=== PATIENT | female | born 1940 | race Caucasian/White ===

== ENCOUNTER 2016-09-12 04:41 | Inpatient (IN) | payer MEDICARE, BC ==
[2016-09-02 20:34] LABS: BASOPHILS 0.3 %; BASOPHILS ABSOLUTE 0.02 10/3/uL (0.0-0.16); EOSINOPHILS ABSOLUTE 0.07 10/3/uL (0.0-0.53); HEMATOCRIT 37.1 % (36.0-48.0); HEMOGLOBIN 12.1 g/dL (12.0-16.0); IMMATURE GRANULOCYTES 0.1 %; IMMATURE GRANULOCYTES ABSOLUTE 0.01 10/3/uL (0.0-0.11); LYMPHOCYTES 19.7 %; LYMPHOCYTES ABSOLUTE 1.39 10/3/uL (0.67-4.30); MEAN CORPUS HGB CONC 32.6 g/dL (32.0-36.0); MEAN CORPUSCULAR HEMOGLOB 30.8 pg (26.0-34.0); MEAN PLATELET VOLUME 9.8 fL (9.2-13.0); MONOCYTES 9.5 %; MONOCYTES ABSOLUTE 0.67 10/3/uL (0.21-1.20); NEUTROPHILS 69.4 %; NEUTROPHILS ABSOLUTE 4.91 10/3/uL (2.02-8.40); PLATELET COUNT 221 10/3/uL (150-400); RED CELL COUNT 3.93 10/6/uL (4.0-5.6); WHITE BLOOD CELLS 7.1 10/3/uL (4.5-10.5)
[2016-09-02 20:37] LABS: MANUAL DIFF NO %; MEAN CORPUSCULAR VOLUME 94.4 fL (80-100)
[2016-09-02 20:39] LABS: CHLORIDE, SERUM 105 MMOL/L (96-112); CO2 (CARBON DIOXIDE) 29 MMOL/L (24-34); POTASSIUM, SERUM 4.9 MMOL/L (3.5-5.3); SODIUM, SERUM 142 MMOL/L (135-148)
[2016-09-02 20:40] LABS: BUN (BLOOD UREA NITROGEN) 27 MG/DL (6-23); CREATININE 1.57 MG/DL (0.55-1.02); GFR AFRICAN AMERICAN 36 ML/MIN (>=60); GFR NON AFRICAN AMERICAN 31 ML/MIN (>=60); GLUCOSE, SERUM 88 MG/DL (60-99)
[2016-09-02 20:41] LABS: INTERNATIONAL NORMAL RATI 1.1 UNITS (-); PROTIME (NOT ORD) 14.1 SEC (12.0-14.5)
[2016-09-02 20:57] LABS: ASCORBIC ACID (UR NOT ORDER) 40 (NEG); BILIRUBIN, URINE NEGATIVE (NEG); KETONE, URINE NEGATIVE (NEG); LEUKOCYTE ESTERASE(NOT OR LARGE (NEG); WBC (NOT ORDERED) (RFLEX) 36 (0-5)
--- NOTE | ~2016-09-12 | OP ---
Record Of Operation [place] [id number] [place]. [address] NAME: SAMIR BETANCOURT : 36 STATUS : ADM IN [facility]#: [id number] AGE: 75 ADM/REG DATE : 09/12/16 MR#: [id number] REPORT SERV DATE: 09/13/16 DICTATED BY: DALLIN SPENCE DATE: 09/12/16 REPORT STATUS : Draft TRANSCRIBED BY: MODL DATE: 09/12/16 DATE OF PROCEDURE: 09/12/2016 OPERATIVE SURGEON: Dallin Spence M.D. OPERATIVE PRODUCTION MECHANIC: Desmond PETERSON COMPLICATIONS: None. ESTIMATED BLOOD LOSS: Less than 75 mL. DISPOSITION: Stable to recovery room. ANESTHESIA: General with interscalene block augmentation for postoperative pain control. PREOPERATIVE DIAGNOSES: 1. Right shoulder pain. 2. Rotator cuff dysfunction/massive irreparable rotator cuff tear. 3. 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 4. Acromioclavicular joint osteoarthritis. POSTOPERATIVE DIAGNOSES: 1. Right shoulder pain. 2. Rotator cuff dysfunction/massive irreparable rotator cuff tear. 3. 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 4. Acromioclavicular joint osteoarthritis. OPERATIVE PROCEDURE: 1. Right shoulder examination under anesthesia. 2. Right reverse total shoulder arthroplasty using Tornier Aequalis reverse total shoulder system. 3. Distal clavicular resection (approximately 1 cm). 4. Humeral head autograft impaction technique. IMPLANTS USED: One glenoid base plate, one 36 mm glenoid sphere with a 10 degree inferior tilt, one 36 mm metaphyseal component, 112 x 100 mm humeral stem, one 36 x 9 mm polyethylene insert, and four 4.5 mm screws, two nonlocking and two locking of the appropriate sizes. PROCEDURE: The diagnoses listed above as well as the recommended surgical procedure, risks, and benefits thereof were discussed in full detail with Samir Betancourt and family on the morning of 09/12/2016. The patient and family asked appropriate questions which were answered to their satisfaction. Informed consent was signed, witnessed and placed in the chart. The appropriate upper extremity was marked for confirmation and an interscalene block was placed by the anesthesia team with good success. The patient was then wheeled to the Record Of Operation [place] [address] [facility] [place]. [address] NAME: SAMIR BETANCOURT : 36 STATUS : ADM IN PAT#: [id number] AGE: 75 ADM/REG DATE : 09/12/16 MR#: [id number] REPORT SERV DATE: 09/13/16 DICTATED BY: DALLIN SPENCE DATE: 09/12/16 REPORT STATUS : Draft TRANSCRIBED BY: JOSEFINA DATE: 09/12/16 operative arena were general endotracheal anesthesia was administered. The patient was placed in the beachchair positioner with all nonoperative extremities well padded and secured for the duration of the case. The patient received 1 gram of Ancef for perioperative antibiosis. The appropriate operative upper extremity was prepped and draped in a typical orthopedic sterile fashion. A surgical pause was performed confirming both the correct patient as well as proper surgical site and procedure. All present were in agreement. All standard anatomic landmarks as well as the superolateral incision site were demarcated using a sterile marking pen. 15 cc of 0.5% Marcaine with epinephrine was injected into the subcuticular layers along the operative incision site. A 10 blade was then used to make an 8 cm incision in the coronal plane off the lateral border of the acromion. Soft tissues were dissected down sharply to expose the deltotrapezius fascia. Full thickness cutaneous flaps were reflected anteriorly and posteriorly. The acromioclavicular joint was identified and electrocautery was used to skeletonize the distal end of the clavicle. A skid was used to protect those structures inferiorly and an oscillating saw was used to remove the distal most 1 cm of clavicle. All additional osteophytes and sharp bone prominences were removed using a rongeur. A raphe was identified in the anterolateral deltoid and then divided 4 cm distal to the lateral border of the acromion. A marking suture was placed in the distal most extent of the split in the deltoid to avoid further dissection and injury to the axillary nerve or those vessels traveling with it. A full deltoid flap was reflected anteriorly. The remnants of the rotator cuff were identified deep to the deltoid. The patient had a large rotator cuff tear with attritional rupture. There was fatty infiltrate throughout the remaining rotator cuff tissue confirming its dysfunction. At this juncture, the rotator cuff tear was extended and the remnants of the infraspinatus were reflected posteriorly. The biceps tendon was located and found to be highly frayed. A bicipital tenolysis was performed. Next, the humeral head was fully exposed. There was severe arthritic change involving both the humeral head as well as the glenoid. A monoblock cutting guide was placed through the hinge point and down the shaft of the proximal humerus. An oscillating saw was used to make a proximal humeral cut. The humeral head was removed and placed on the back table. Cancellous bone was harvested from within to provide for later autograft impaction technique. Next, the playboy retractor was placed under the inferior margin of the glenoid and the humerus was retracted posteriorly and inferiorly out of the way of the glenoid. The bicipital labral complex and all residual labrum was excised using electrocautery. The center point of the glenoid was identified using the anterior inferior referencing guide and a central drill hole was created. A 36 mm reamer was used to ream the glenoid down to a nice healthy bleeding bony surface. Great care was taken to angle the reamer approximately 10 degrees inferiorly and to cheat the central peg hole inferiorly in relation to the overall glenoid. Record Of Operation [place] [address] [place]. [address] NAME: SAMIR BETANCOURT : 36 STATUS : ADM IN PAT#: [id number] AGE: 75 ADM/REG DATE : 09/12/16 MR#: [id number] REPORT SERV DATE: 09/13/16 DICTATED BY: DALLIN SPENCE DATE: 09/12/16 REPORT STATUS : Draft TRANSCRIBED BY: JOSEFINA DATE: 09/12/16 The glenoid was reamed appropriately. At this juncture, the central peg hole was drilled again increasing the size up to 8 mm. The glenoid base plate was then opened and assembled on the back table with its insertion device. The cancellous autograft was impacted into the PEG hole. The glenoid base plate was then placed in its PEG hole and impacted appropriately. An excellent scratch fit was obtained. All four holes were drilled and filled with the appropriately sized holes. Both of these screws obtained excellent bicortical purchase into the base of the corticoid superiorly and down the scapular pillar inferiorly. The base plate was then tested and found to be very secure. A 36 mm glenosphere was then opened and inserted into its Lynn taper. It was impacted down and the Lynn taper was set. The central set screw was then tightened down for secondary security. Next, we returned to the final preparation of the humerus. The diaphyseal reamers were used in increasing sizes until cortical chatter was obtained. The 36 mm hand metaphyseal reamer was then used next followed by the cheese grater to core out the proximal metaphysis. At this juncture the humeral stem with a 36 mm metaphysis was trialed and found to fit appropriately. These were then opened and assembled on the back table with their insertion devices. A cement restrictor was placed 2 canal diameters distal to the distal most extent of the prosthesis. Pulsatile lavage was used to irrigate the shaft of the humerus. An end tip suction catheter was placed down the shaft of the humerus. Third generation cementation techniques were employed with the cement being mixed under vacuum pressure. Vancomycin was placed in the cement. Next, the cement was placed down the shaft of the humerus and the suction tip catheter was removed. The prosthesis was then placed down the shaft of the humerus with the appropriate retroversion measured with retroversion guide parallel to the forearm. Next, the cement was allowed to harden. The polyethylene liner was tested and the appropriate size was selected. This was opened and impacted into place for a nice snap fit. The glenohumeral joint was then reduced and found to have excellent tension as well as appropriate range of motion and excellent stability. The deep layers were then irrigated with copious amount of pulsatile lavage. The remnants of the rotator cuff were then closed for maximal available coverage of the prosthesis. They were closed with #2 Fiberwire through the actual prosthesis. This gave us a great tie-down point laterally. Next, the deltoid was closed through bone holes on the anterior and lateral borders of the acromion. An excellent closure of the deltoid was obtained. Finally, this layer again was washed with copious amounts of pulsatile lavage and the subcutaneous layers were closed with 2-0 undyed Vicryl. The subcuticular layers were closed in a running Monocryl stitch in the cutaneous layer. Steri-Strips were placed on the skin. Sterile dressing was secured with Metapore tape and the patient was placed in an ultra sling for temporary immobilization. An ice pack was provided. The patient was then awakened from anesthesia without difficult. She was transferred to post-anesthesia care unit in stable condition where her postoperative examination was within normal limits understanding that the interscalene block was still in effect. A lengthy discussion was held with the patient and family detailing all operative findings as well as procedures performed with all questions answered to their satisfaction. Record Of Operation [facility] [address] [place] [address] NAME: SAMIR BETANCOURT : 36 STATUS : ADM IN PAT#: [id number] AGE: 75 ADM/REG DATE : 09/12/16 MR#: [id number] REPORT SERV DATE: 09/13/16 DICTATED BY: DALLIN SPENCE. DATE: 09/12/16 REPORT STATUS : Draft TRANSCRIBED BY: MODSkyla DATE: 09/12/16 CCS/JOSEFINA Dallin Spence M.D. / [id number] CC: Dallin Spence M.D.
[~2016-09-12 04:41] MED LIST: LORTAB 5 PO; MIRALAX POWDER1 PKT PO; MOBIC15 MG PO; PLAQ200B PO; PRILOSEC40 MG PO; STOOL SOFTEN100 MG PO; TAMOXIFEN20 M1 PO; ULTRAM50 PO
[2016-09-13 05:23] LABS: HEMOGLOBIN 11.2 g/dL (12.0-16.0)
[2016-09-13 05:32] LABS: CALCIUM, SERUM 8.9 MG/DL (8.5-10.4); CHLORIDE, SERUM 105 MMOL/L (96-112); CO2 (CARBON DIOXIDE) 28 MMOL/L (24-34); CREATININE 1.22 MG/DL (0.55-1.02); GFR AFRICAN AMERICAN 49 ML/MIN (>=60); GFR NON AFRICAN AMERICAN 43 ML/MIN (>=60); POTASSIUM, SERUM 4.1 MMOL/L (3.5-5.3); SODIUM, SERUM 139 MMOL/L (135-148)
[2016-09-13 05:33] LABS: BUN (BLOOD UREA NITROGEN) 16 MG/DL (6-23); GLUCOSE, SERUM 171 MG/DL (60-99)
== END 2016-09-13 15:56 | disposition home or self-care (01) | DRG 483 ==
LOC: SDC/OF 04:41 → PACU 09:32 → 3SO 10:37
PROVIDERS: Specialist
PROC: 0PUC07Z Supplement Right Humeral Head with Autologous Tissue Substitute, Open Approach (ICD-10-PCS; 2016-09-12)
PROC: 0PB90ZZ Excision of Right Clavicle, Open Approach (ICD-10-PCS; 2016-09-12)
PROC: 0RRJ00Z Replacement of Right Shoulder Joint with Reverse Ball and Socket Synthetic Substitute, Open Approach (ICD-10-PCS; principal; 2016-09-12 06:30)
DX: M19.011 Primary osteoarthritis, right shoulder (principal); M75.121 Complete rotator cuff tear or rupture of right shoulder, not specified as traumatic
CPT/HCPCS: 36415; 71010; 73030-RT; 80048; 81001; 85014; 85018; 85025; 85610; 86850; 86900; 86901; 87086; 87641; 88305; 88311; 93005; 97110-GP; 97116-GP; 97161-GP; 97530-GP; A9270-GY; C1713; C1776; G8978-CK-GP; G8979-CI-GP; J0690; J1170; J2250; J2405; J2550; J2710; J2795; J3010